=== PATIENT | male | born 1985 | race Caucasian/White ===

== ENCOUNTER 2022-08-01 21:37 | Emergency (ER) | payer BC ==
[~2022-08-01] VITALS: Ht 182.9 cm; Wt 121.8 kg
[2022-08-01 23:05] VITALS: BP 126/77
[2022-08-01 23:16] VITALS: BP 119/50
[2022-08-01 23:30] VITALS: BP 122/87
[2022-08-02 00:15] VITALS: BP 125/78
[2022-08-02] MEDS ORDERED: ROBITUSSIN AC10 ML PO (00:39)
[2022-08-02] MEDS ORDERED: KEFLEX500 MG PO (00:39)
[2022-08-02 01:00] VITALS: BP 131/79
== END 2022-08-02 01:07 | disposition home or self-care (01) | DRG 153 ==
LOC: ED 21:37
DX: J06.9 Acute upper respiratory infection, unspecified (principal)

== ENCOUNTER 2024-04-11 11:04 | Emergency (ER) | payer SELFPAY ==
[~2024-04-11] VITALS: Ht 182.9 cm; Wt 127.0 kg
[~2024-04-11 11:04] MED LIST: KEFLEX500 MG PO; ROBITUSSIN AC10 ML PO
[2024-04-11 11:27] VITALS: BP 127/81
[2024-04-11 11:30] VITALS: BP 124/85
[2024-04-11 13:20] VITALS: BP 124/85
== END 2024-04-11 13:30 | disposition home or self-care (01) | DRG 556 ==
LOC: ED 11:04
DX: M25.561 Pain in right knee (principal); F17.290 Nicotine dependence, other tobacco product, uncomplicated

== ENCOUNTER 2024-10-24 17:41 | Emergency (ER) | payer OTHER ==
[~2024-10-24] VITALS: Ht 182.9 cm; Wt 126.5 kg
[2024-10-24 19:36] VITALS: BP 139/61
[2024-10-24 19:46] VITALS: BP 129/66
[2024-10-24 20:01] VITALS: BP 133/68
[2024-10-24 20:16] VITALS: BP 133/71
[2024-10-24 20:46] VITALS: BP 94/60
[2024-10-24 20:49] VITALS: BP 94/60
== END 2024-10-24 21:04 | disposition home or self-care (01) | DRG 999 ==
LOC: ED 17:41
DX: S16.1XXA Strain of muscle, fascia and tendon at neck level, initial encounter (principal); S82.091A Other fracture of right patella, initial encounter for closed fracture; S39.012A Strain of muscle, fascia and tendon of lower back, initial encounter; S40.012A Contusion of left shoulder, initial encounter; V44.5XXA Car driver injured in collision with heavy transport vehicle or bus in traffic accident, initial encounter; F17.200 Nicotine dependence, unspecified, uncomplicated